=== PATIENT | female | born 2005 | race African-American/Black ===

== ENCOUNTER 2025-03-16 12:27 | Emergency (ER) | payer BC, SELFPAY ==
[2025-03-16 12:43] VITALS: BP 141/97; PULSE 84; RESP 16; TEMP 36.4; O2SAT 100
[2025-03-16] MEDS: SODIUM CHLORIDE 0.9% IV 1,000 ML 999 ML IV CONT (14:08)
[2025-03-16 14:13] LABS: Basophils Percent Auto 0.2 % (0.2-1.2); Hematocrit 40.7 % (37.0-47.0); Hemoglobin 13.2 g/dL (12.0-15.0); Immature Granulocyte Absolute 0.01 K/mm3 (0.00-0.031); Immature Granulocyte Percent A 0.2 % (0-0.5); Lymphocytes Absolute Auto 0.61 K/mm3 (0.9-3.2); Mean Corpuscular HGB Conc 32.4 g/dl (32-36); Mean Corpuscular Hemoglobin 28.3 pg (26-34); Mean Corpuscular Volume 87.3 fl (80-100); Monocytes Absolute Auto 0.1 K/mm3 (0.1-0.6); Monocytes Percent Auto 2.1 % (2.6-8.5); Neutrophils Absolute Auto 3.6 K/mm3 (1.3-6.7); Neutrophils Percent Auto 83.5 % (45.5-73.1); Platelet Count Result 248 k/mm3 (150-375); Red Blood Count 4.66 M/mm3 (4.2-5.4); Red Cell Distribution Width 13.6 % (11.5-14.5); White Blood Count 4.4 K/mm3 (4.5-10.0)
--- OUTSIDE RECORDS SUMMARY | 2025-03-16 14:15 | XMS_ITS | Referral Summary ---
Author Organization [facility] Address [address] [place] [address] Care Team Providers Care Sales Representative Printing Supplies Name Role Phone Marcia Manzo DO Primary Care Prov ider Allergies No known active allergies Medications etonogestreL-ethin yl estradioL (NUVARING) 0.12-0.015 mg/24 hr VAGL vaginal ringIndications:En counter for other general counseling or advice on contraception Place 1 Device into the vagina every 4 weeks. Insert vaginally for 3 weeks after menses cease 3 each 3 3 Active dicyclomine (BENTYL) 20 mg PO tablet Take 1 tablet by mouth three times daily as needed (abdominal cramping). 10 tablet 4 Active ondansetron (ZOFRAN ODT) 4 mg PO orally dissolving tablet Take 1 tablet by mouth every 6 hours as needed for Nausea. Allow to dissolve in mouth. 10 tablet 4 Active Active Problems No known active problems Immunizations Immunization Administration Dates Next Due COVID-19 (PF)VACCINE (PFIZER /[id number] 30MCG/0.3 ml INJECTION 06/04/2021 Tgmqqnozgc-ruvkbih-qvsokqtou Pertussis (DTaP) Injection 05/03/2008,2005 Fluarix (Pf) - Influenza Vac cine Quad Elis 0.5 Ml Im Injection 07/09/2020 Gardasil 9 - Human Papilloma Virus Vaccine 07/15,03/10/2017 Hepatitis A,ped/adol,2-Dose 06/18/2009, 8 Hepatitis B Vaccine Injection (PEDS) 2005, 2005 Hib, Unspecified Formula 02/17/2006,2005,1 12/14/2004 Influenza, Seasonal Injectab le, Preserv Free 08/16/2012,11/24/2011 Influenza, Split Virus, 3 Years And Above 2007 Influenza, Unspecified Formula 11/23/2007,2005 Influenza, injectable, quadr ivalent, preserv free 08/27/2015,08/07/2014,08/24/2013 KINRIX - DIPH,PERTUS(ACEL),T ET,POLIO VACCINE 08/19/2010 MENVEO - MENINGOCOCCAL VACCI NE A,C,Y,W-135-DIP 10CG-5 MCG 03/10/2017 Menquadfi 10mcg/0.5 ml 06/29/2023 PEDIARIX - HEP B-DP(ACELL)T-POLIO VACCINE 2005,2005 PREVNAR 7 - PNEUMOCOCCAL 7-VALPS VACCINE 006,2005,2005 PROQUAD - MEASLES,MUMPS,RUB, VARICELLA VACCINE 08/19/2010 Wqqgwwz-Mcvfinkdbt-Pwrogizzj Pertussis (Tdap) Injection 08/27/2015 inactivated poliovirus vacci ne injection/oral 2005 Social History Tobacco Use Types Packs/Day Years Used Date Smoking Tobacco: Never Smokeless Tobacco: Never Alcohol Use Standard Drinks/Week Comments Never 0 (1 standard drink = 0.6 oz pur e alcohol) Social Connections Answer Date Recorded Conversations with friends/family/neighbors per week Not on file 02/10/2021 Housing Stability Answer Date Recorded Mortgage Payment Concerns? Not on file 06/06 [address] of [address] Lived in the Last Year Not on f ile 06/06/2021 Unstable Housing? Not on file 06/06/2021 Comments No Sex and Gender Information Value Date Recorded Sex Assigned at Not on file Legal Sex Female 12:14 PM CDT Gender Identity Not on file Sexual Orientation Not on file Last Filed Vital Signs Vital Sign Reading Time Taken Comments Blood Pressure 130/78 01/19/2024 4:45 PM TYING IN MACHINE OPERATOR Pulse 51 01/19/2024 4:45 PM TYING IN MACHINE OPERATOR Temperature 36.9 C (98.5 F) 01/19/2024 2:58 PM TYING IN MACHINE OPERATOR Respiratory Rate 18 01/19/2024 4:11 PM TYING IN MACHINE OPERATOR Oxygen Saturation 97% 01/19/2024 4:45 PM TYING IN MACHINE OPERATOR Inhaled Oxygen Concentration - - Weight 89.2 kg (196 lb 9.6 oz) 06/29/2023 8:28 A M CDT Height 175 cm (5' 8.9 ) 06/29/2023 8:28 AM CDT Body Mass Index 29.12 06/29/2023 8:28 AM CDT Body Mass Index Percentile 93.68% 06/29/2023 8:2 8 AM CDT Growth Chart: [facility] (Girls, 2- 20 Years) Plan of Treatment Not on file Procedures Procedure Name Priority Date/Time Associated Diagnosis Comments CHLAMYDIA/GONOCOCC US, JEAN Routine 06/23/2022 5:29 PM CDT Encounter for other general counseling or advice on contraception from Last 3 Months or Most Recently Relevant to Health Maintenance Results * Chlamydia/Gonococcus, JEAN (06/23/2022 5:29 PM CDT) C.TRACHOMATIS, JEAN Negative Negative [facility] 1 N.GONORRHOEAE, JEAN Negative Negative [facility] 1 URINE SPECIMEN / Unknown 06/23/2022 5:29 PM CDT 06/23/2022 11:00 PM CDT Comment:URINE Narrative [facility] - 06/24/2022 9:06 PM CDT SRC:URINE Performed at: 01 - [facility] [id number] Compugraph Operator: Lisa Peters MD, Phone: [phone] us Marcia Manzo DO LAB NON-BLOOD MICR O Final Result [facility] [address] [place] [address] [facility] 1 from Last 3 Months or Most Recently Relevant to Health Maintenance Insurance BLUE CROSS OUT OF STATE BLUE CROSS OUT OF [facility] Care Teams Sales Representative Printing Supplies Relationship Specialty Start Date End Date Marcia Manzo DO [address] [place] [id number] PCP - General Family Medicine 06/11/20
--- OUTSIDE RECORDS SUMMARY | 2025-03-16 14:15 | XMS_ITS | Clinical Summary ---
Author Organization [facility] Address [address] [place] [address] Care Team Providers Care Business Development Sales Executive Name Role Phone Marcia Manzo DO Primary [...] Administration Dates Next Due COVID-19 (PF)VACCINE (PFIZER /[id number] 30MCG/0.3 ml INJECTION 06/04/2021 Lpqggdehky-mznshwd-fbwhgwjnf Pertussis (DTaP) Injection 05/03/2008,2005 Fluarix (Pf) - [...] 006,2005,2005 PROQUAD - MEASLES,MUMPS,RUB, VARICELLA VACCINE 08/19/2010 Nsginft-Efigqpncsk-Lxkkwccpp Pertussis (Tdap) Injection 08/27/2015 inactivated poliovirus vacci ne injection/oral 2005 Family History Medical History Relation Comments No Known Problems Brother No Known Problems Father Diabetes Maternal Grandfather Hypertension Maternal Grandfather Asthma Maternal Grandmother Hypertension Maternal Grandmother Hypertension Mother sarcooid Mother Hypertension Sister 1 Epilepsy Sister 2 Seizures No Known Problems Sister 3 No Known Problems Sister 4 Relation Status Comments Brother Alive Father Alive Maternal Grandfather Maternal Grandmother Mother Alive Sister 1 Alive Sister 2 Alive Sister 3 Alive Sister 4 Alive Social History Tobacco Use Types Packs/Day Years [...] Comments Blood Pressure 130/78 01/19/2024 4:45 PM ONCOLOGY NURSE NAVIGATOR Pulse 51 01/19/2024 4:45 PM ONCOLOGY NURSE NAVIGATOR Temperature 36.9 C (98.5 F) 01/19/2024 2:58 PM ONCOLOGY NURSE NAVIGATOR Respiratory Rate 18 01/19/2024 4:11 PM ONCOLOGY NURSE NAVIGATOR Oxygen Saturation 97% 01/19/2024 4:45 PM ONCOLOGY NURSE NAVIGATOR Inhaled Oxygen Concentration - - Weight 89.2 kg (196 lb 9.6 oz) 06/29/2023 8:28 A M CDT Height 175 cm (5' 8.9 ) 06/29/2023 8:28 AM CDT Body Mass Index 29.12 06/29/2023 8:28 AM CDT Body Mass Index Percentile 93.68% 06/29/2023 8:2 8 AM CDT Growth Chart: [facility] (Girls, 2- 20 Years) Plan of Treatment Health Maintenance Due Date Last Done Comments HIV Screening 2005 Hepatitis C Screening 2005 Meningococcal B (1 of 2 - Standard) 2021 Chlamydia and Gonorrhea Screening 06/23/2023 06/23/2022 COVID-19 Vaccine (2 - season) 2024 06/04/2021 Influenza Vaccine (Season Ended) 2025 07/09/2020, 08/27/2015, 08/07/2014, Additional history exists DTaP,Tdap and Td Vaccines (7 - Td or Tdap) 08/27/2025 08/27/2015, 08/19/2010, 05/03/2008, Additional history exists Pneumococcal 7-64 Aged Out 02/17/2006, , 2005 No longer eligible based on patient's age to complete this topic HPV Vaccines Completed 07/15/2018, 03/10/2017 RSV Vaccine (Pediatric) Aged Out No l onger eligible based on patient's age to complete this topic Procedures Procedure Name Priority Date/Time Associated Diagnosis [...] 06/24/2022 9:06 PM CDT SRC:URINE Performed at: - [facility] [address] [id number] Court Manager: Lisa Peters MD, Phone: [phone] us Marcia Manzo DO LAB NON-BLOOD MICR O Final Result Performing Organization Address City/State/[facility] Co de Phone Number [facility] [address] [place] [phone] [facility] 1 from Last 3 Months or Most Recently Relevant to Health Maintenance Insurance BLUE CROSS OUT OF STATE Care Teams Business Development Sales Executive Relationship Specialty Start Date End Date Marcia Manzo DO [address] [place] [address] [place] [address] PCP - General Family Medicine 06/11/20
--- OUTSIDE RECORDS SUMMARY | 2025-03-16 14:15 | XMS_ITS | Clinical Summary ---
Author Organization [facility] Address [address] [place] [address] Care Team Providers Care Power Originator Name Role Phone Marcia Manzo Primary Care Prov ider Source Comments In the event that this is information that is protected by federal Confidentiality of Substance UseDisorder Patient Records, 42 CFR Part 2 prohibits the unauthorized disclosure of these records.[facility] Allergies No known active allergies Medications ondansetron-ODT 4 mg disintegrating tablet Take 1 tablet by mouth every 8 (eight) hours as needed. 10 tablet 4 Active dicyclomine 20 mg tablet Take 1 tablet by mouth every 6 (six) hours. 20 tablet 4 Active Social History Tobacco Use Types Packs/Day Years Used Date Smoking Tobacco: Never Assessed Comments Unknown Sex and Gender Information Value Date Recorded Sex Assigned at Not on file Legal Sex Female 11:01 AM CDT Gender Identity Not on file Sexual Orientation Not on file Last Filed Vital Signs Vital Sign Reading Time Taken Comments Blood Pressure 133/75 05/26/2024 2:23 AM CDT Pulse 58 05/26/2024 2:23 AM CDT Temperature 36.7 C (98.1 F) 05/25/2024 9:25 PM CDT Respiratory Rate 16 05/26/2024 2:23 AM CDT Oxygen Saturation 100% 05/25/2024 9:25 PM CDT Inhaled Oxygen Concentration - - Weight 83.2 kg (183 lb 6.8 oz) 05/25/2024 9:25 P M CDT Height 175.3 cm (5' 9 ) 05/25/2024 9:25 PM CDT Body Mass Index 27.09 05/25/2024 9:25 PM CDT Body Mass Index Percentile 88.62% 05/25/2024 9:2 5 PM CDT Growth Chart: [facility] (Girls, 2- 20 Years) Plan of Treatment Health Maintenance Due Date Last Done Comments HIV SCREENING 2020 Chlamydia Screening-Yearly 2021 Gonorrhea Screening-Yearly 2021 MENINGOCOCCAL B (MENB) (1 of 2 - Standard) 2021 Diabetes Screening 2023 HEPATITIS C SCREENING 2023 LIPID TESTING 2023 COVID-19 VACCINE ( - season) 2024 06/04/2021 INFLUENZA (Season Ended) 2025 020, 08/27/2015, 08/07/2014, Additional history exists DTAP/TDAP/TD (7 - Td or Tdap) 08/27/2025 08/27/2015, 08/19/2010, 05/03/2008, Additional history exists Pneumococcal 0-49 Aged Out 02/17/2006, , 2005 No longer eligible based on patient's age to complete this topic HPV Completed 07/15/2018, 03/10/2017 MENINGOCOCCAL CONJUGATE (MCV4) Completed 06/29/2023, 03/10/2017 Insurance BCBS - OUT OF STATE PPO Care Teams Power Originator Relationship Specialty Start Date End Date Marcia Manzo DO [address] [place] [address] PCP - General Family Medicine 05/25/24
[2025-03-16 14:16] VITALS: BP 144/98; PULSE 51; RESP 14; O2SAT 100
[2025-03-16 14:17] VITALS: PULSE 56; RESP 17
[2025-03-16 14:28] LABS: Alanine Aminotransferase 43 U/L (6-35); Albumin Level 4.9 g/dL (3.7-5.6); Alkaline Phosphatase 78 U/L (45-116); Anion Gap 16 mmol/L (4-12); Aspartate Amino Transferase 30 U/L (14-36); Bilirubin,Total 0.8 mg/dL (0.2-1.3); Blood Urea Nitrogen 13 mg/dL (8-21); Calcium 9.7 mg/dL (8.9-10.7); Carbon Dioxide 19 mmol/L (22-30); Chloride 104 mmol/L (98-107); Estimated CRCL calculation 135 ml/min; Estimated Glomerular Filt Rate > 60; Glucose 132 mg/dL (65-110); Lipase 37 U/L (23-300); Potassium 4.3 mmol/L (3.4-5.0); Sodium 139 mmol/L (134-143)
[2025-03-16] MEDS: ONDANSETRON INJ 4 MG/2 ML VIAL IV PUSH (14:53)
[2025-03-16] MEDS: PROCHLORPERAZINE EDISYLATE 10 MG/2 ML VIAL 5 MG IV PUSH (15:39)
[2025-03-16] MEDS: SODIUM CHLORIDE 0.9% IV 500 ML 999 ML IV CONT (15:39)
[2025-03-16 15:42] LABS: BEDSIDEPREGUCG Negative (Negative)
--- NOTE | 2025-03-16 15:46 | ED.GENADULT ---
HPI - General Adult General Chief complaint: Nausea/Vomiting/Diarrhea Stated complaint: n/v Time Seen by Provider: 03/16/25 13:44 Source: patient Mode of arrival: ambulatory Limitations: no limitations History of Present Illness HPI narrative: 19-year-old otherwise healthy here with a complains of nausea, vomiting and diarrhea it started early this morning. She denies eating any unusual food. No history of fever or chills. Patient states this is the 3rd episode. Denies any fever or chills. Has mild lower abdominal cramping Onset (ago): day(s) (1) Severity: moderate Quality: aching Pain Consistency: constant Relieving factors: none Exacerbating factors: none Associated symptoms: denies other symptoms Related Data Allergies Allergy/AdvReac Type Severity Reaction Status Date / Time No Known Allergies Allergy Verified 03/16/25 12:29 Review of Systems Review of Systems: All systems reviewed & are unremarkable except as noted in HPI and below Constitutional: Constitutional: Reports no additional constitutional complaints Eyes: Eyes: Reports no additional eye complaints ENT: Reports system reviewed and no additional complaints, except as documented Cardiovascular: Cardiovascular: Reports no additional cardiovascular complaints Respiratory: Respiratory: Reports no additional respiratory complaints Gastrointestinal: Gastrointestinal: Reports as per HPI Musculoskeletal: Musculoskeletal: Reports no additional musculoskeletal complaints Integumentary/Breasts: Skin/Breast: Reports system reviewed and no additional complaints, except as docu Neurologic: Reports system reviewed and no additional complaints, except as documented Psychiatric: Psychiatric: Reports no additional psychiatric complaints Endocrine: Endocrine: Reports no additional endocrine complaints Exam Narrative: GENERAL: Well-appearing, well-nourished, and in no acute distress. HEAD: Normocephalic, atraumatic. EYES: PERRLA and EOMI. ENT: Nares clear, no rhinorrhea or epistaxis. Mucous membranes moist. NECK: Supple. CHEST: Clear to auscultation. No respiratory distress. HEART: Regular rate and rhythm. No murmur heard. Normal peripheral pulses. ABDOMEN: Soft, nontender, nondistended, normal active bowel sounds. EXTREMITIES: Normal range of motion. No edema. SKIN: Warm, dry, no rash. NEURO: No focal deficits. Alert and oriented x3. PSYCH: Normal mood and affect. Course Course Emergency Course: Patient feeling much better , nausea improved with IV Compazine. Discussed lab work with her. She does feel comfortable going home. Vital Signs Vital signs: Vital Signs Temperature 36.4 C L 03/16/25 12:43 Pulse Rate 84 03/16/25 12:43 Respiratory Rate 16 03/16/25 12:43 Blood Pressure 141/97 H 03/16/25 12:43 Pulse Oximetry 100 03/16/25 12:43 Temperature 36.4 C L 03/16/25 12:43 Pulse Rate 56 L 03/16/25 14:17 Respiratory Rate 17 03/16/25 14:17 Blood Pressure 144/98 H 03/16/25 14:16 Pulse Oximetry 100 03/16/25 14:16 Medical Decision Making Vital Signs Vital Signs: Vital Signs Temperature 36.4 C L 03/16/25 12:43 Pulse Rate 84 03/16/25 12:43 Respiratory Rate 16 03/16/25 12:43 Blood Pressure 141/97 H 03/16/25 12:43 Pulse Oximetry 100 03/16/25 12:43 Temperature 36.4 C L 03/16/25 12:43 Pulse Rate 56 L 03/16/25 14:17 Respiratory Rate 17 03/16/25 14:17 Blood Pressure 144/98 H 03/16/25 14:16 Pulse Oximetry 100 03/16/25 14:16 Lab Data 03/16/25 14:06 03/16/25 14:06 Labs: Lab Results 03/16/25 03/16/25 03/16/25 Range/Units 13:54 14:06 15:40 WBC 4.4 L (4.5-10.0) K/mm3 RBC 4.66 (4.2-5.4) M/mm3 Hgb 13.2 (12.0-15.0) g/dL Hct 40.7 (37.0-47.0) % MCV 87.3 (80-100) fl MCH 28.3 (26-34) pg MCHC 32.4 (32-36) g/dl RDW 13.6 (11.5-14.5) % Plt Count 248 (150-375) k/mm3 MPV 11.0 H (7.4-10.4) fl Immature Gran % (Auto) 0.2 (0-0.5) % Neut % (Auto) 83.5 H (45.5-73.1) % Lymph % (Auto) 14.0 L (18.3-44.2) % [place] % (Auto) 2.1 L (2.6-8.5) % Eos % (Auto) 0.0 (0-4.4) % Baso % (Auto) 0.2 (0.2-1.2) % Lymph # (Auto) 0.61 L (0.9-3.2) K/mm3 [place] # (Auto) 0.1 (0.1-0.6) K/mm3 Eos # (Auto) 0.0 (0-0.3) K/mm3 Baso # (Auto) 0.0 (0.0-0.1) K/mm3 Abs Immat Gran (auto) 0.01 (0.00-0.031) K/mm3 Absolute Neuts (auto) 3.6 (1.3-6.7) K/mm3 Absolute Nucleated RBC 0.000 (0.0-0.012) K/mm3 Nucleated RBC % 0.0 (0.0-0.2) % Sodium 139 (134-143) mmol/L Potassium 4.3 (3.4-5.0) mmol/L Chloride 104 (98-107) mmol/L Carbon Dioxide 19 L (22-30) mmol/L Anion Gap 16 H (4-12) mmol/L BUN 13 (8-21) mg/dL Creatinine 0.57 L (0.7-1.0) mg/dL Estim Creat Clear Calc 135 ml/min Estimated GFR > 60 (59 - ) Glucose 132 H (65-110) mg/dL Calcium 9.7 (8.9-10.7) mg/dL Total Bilirubin 0.8 (0.2-1.3) mg/dL AST 30 (14-36) U/L ALT 43 H (6-35) U/L Alkaline Phosphatase 78 (45-116) U/L Total Protein 8.0 (6.3-8.6) g/dL Albumin 4.9 (3.7-5.6) g/dL Lipase 37 (23-300) U/L Urine Color Pending Urine Appearance Pending Urine pH Pending Ur Specific [place] Pending Urine Protein Pending Urine Glucose (UA) Pending Urine Ketones Pending Ur Blood (Man) Pending Urine Nitrate Pending Urine Bilirubin Pending Urine Urobilinogen Pending Leukocyte Esterase Rfl Pending POC Urine HCG, Qual Negative (Negative) Discharge Plan Discharge Clinical Impression: Nausea & vomiting Qualifiers: Vomiting type: unspecified Qualified Code(s): R11.2 - Nausea with vomiting, unspecified Patient Disposition: Home Condition: Stable Instructions: Acute Nausea and Vomiting (ED) Additional Instructions: Drink fluids as tolerated take Zofran as needed be on a bland diet Patient Language: [place] Prescriptions: New ondansetron 4 mg tablet,disintegrating 4 mg PO Q6-8H PRN (Reason: nausea and vomiting) Qty: 14 0RF Follow-up/Referrals: Gregg Henley MD [Physician] - PHYSICIAN NOT ON STAFF,NONSTAFF [Primary Care Provider] - Time of Disposition: 16:03
[2025-03-16 15:51] LABS: Add Urine Microscopic? YES; Appearance Urine Clear (Clear); Bacteria Urine 1+ /hpf; Bilirubin Urine Negative (Negative); Blood Urine Negative (Negative); Color Urine Yellow (Yellow); Glucose Urine UA Negative (Negative); Ketones Urine 4+ mg/dL (Negative); Leukocyte Esterase Ur Negative LEU/UL (Negative); Nitrate Urine Negative (Negative); Non Pathogenic Casts 0-2; Protein Urine 1+ mg/dL (Negative); RBC Urine 0-2 /hpf (0-2); Specific Grav Ur 1.022 (1.001-1.035); Squamous Epithelial Cell Urine Few /hpf (Few); Urobilinogen Urine 0.2 mg/dL (<2.0); WBC Urine 0-5 /hpf (0-3); pH Urine 8.5 (5.0-9.0)
== END 2025-03-16 16:44 | disposition home or self-care (01) ==
PROVIDERS: Emergency Provider Family Medicine
DX: R11.2 Nausea with vomiting, unspecified (principal)
CPT/HCPCS: 36415; 80053; 81001; 81025; 83690; 85025; 96361; 96365; 96374; 96375; 99284; J0780; J2405; J7030; J7040